=== PATIENT | female | born 1955 | race Caucasian/White ===

== ENCOUNTER → 2018-04-06 | Outpatient (CLI) | payer MEDICARE, MEDICAID ==
[2018-03-23 08:57] LABS: ABSOLUTE NEUTROPHILS 6.9 thou/uL (1.6-8.1); RDW-CV 13.3 % (10.5-14.5)
[2018-03-23 08:59] LABS: ABSOLUTE BASOPHILS 0.2 thou/uL (0.0-0.2); ABSOLUTE EOSINOPHILS 0.2 thou/uL (0.0-0.7); ABSOLUTE LYMPHOCYTES 3.3 thou/uL (0.8-5.3); ABSOLUTE MONOCYTES 0.5 thou/uL (0.0-1.2); BASOPHILS 1.4 %; EOSINOPHILS 1.8 %; HEMATOCRIT 43.1 % (37.0-47.0); HEMOGLOBIN 14.7 gm/dL (12.0-15.0); LYMPHOCYTES 29.7 %; MCH 32.3 pg (26.0-34.0); MCHC 34.2 g/dL (28.0-37.0); MCV 94.6 fL (80.0-100.0); MONOCYTES 4.7 %; NUCLEATED RBCS 0 /100WBC; PLATELET COUNT* 261 thou/uL (150-400); POLYS 62.4 %; RBC 4.55 mil/uL (4.20-5.00)
[2018-03-23 09:07] LABS: APTT 29.4 Seconds (25.0-31.3); PROTIME 9.4 Seconds (9.20-11.50)
[2018-03-23 09:12] LABS: ALBUMIN 3.4 g/dL (3.4-5.0); CALCIUM 9.6 mg/dL (8.5-10.1); CREATININE 0.8 mg/dL (0.6-1.3); TOTAL BILIRUBIN 0.4 mg/dL (<0.1-1.0); TOTAL PROTEIN 7.6 g/dL (6.4-8.2)
[2018-03-23 09:14] LABS: POTASSIUM 2.4 mmol/L (3.5-5.1)
[2018-03-23 10:06] LABS: ESR (SEDRATE) 43 mm/hr (0-30)
--- NOTE | 2018-03-24 13:25 | EKG ---
[place] [address] ELECTROCARDIOGRAM REPORT Name: MONROE GASTELUM Room: PRE IN [facility].#: [id number] Admission: Attend Phys: Nazia Alonso Discharge: Date of : 53 Report #: [id number] THIS REPORT FOR: //name// [facility] Test Date: 2018-03-23 Test Time: 09:03:17 Pat Name: MONROE GASTELUM Department: Room: Gender: F Operating Room Tech: : 1955 Requested By: Chadwick Galaviz Order Number: [id number] Reading MD: Phoenix Mcdonald Measurements Intervals [place] Rate: 67 P: 38 MA: 187 QRS: 19 QRSD: 99 T: 42 QT: 416 QTc: 439 Interpretive Statements Sinus rhythm Abnormal inferior Q waves No previous ECG available for comparison Electronically Signed On 03-24-2018 13:25:35 CDT by Phoenix Mcdonald [email or web address] <ELECTRONICALLY SIGNED> By: Phoenix Mcdonald MD, [facility] 03/24/18 1325 [id number] Phoenix Mcdonald MD, FACC /EPI
[~2018-04-06] VITALS: Ht 149.9 cm; Wt 81.6 kg
[~2018-04-06] MED LIST: ATENOLOL 50MG T50 M1 PO; CHLORTHALIDONE25 MG PO; ELIQUIS2.5 MG PO; IBUPROFEN 800800 M1 PO; KETOCONAZOLE15 GM TOP; NORCO 5-325 TA1 EACH PO; OXYCODONE HCL 55 MG PO; PEPCID20 MG PO; POTASSIUM20 PO; RESTORIL30 MG PO; ULTRAM 50MG TAB50 MG PO
== END | disposition still patient (30) ==
LOC: M.ORTHSURG 06:16 → M.LAB 06:22 → M.PRE 06:22 → M.TBA 06:22 → M.PRE 07:22 → EDSTATUS 08:29 → M.PRE 09:20 → M.ORTHSURG 13:05
PROVIDERS: Orthopaedic Surgery
DX: Z01.818 Encounter for other preprocedural examination (principal); M17.11 Unilateral primary osteoarthritis, right knee

== ENCOUNTER 2018-04-27 06:21 | Inpatient (IN) | payer MEDICARE, MEDICAID ==
[~2018-04-27] VITALS: Ht 149.9 cm; Wt 81.6 kg
[~2018-04-27 06:21] MED LIST changes: -ELIQUIS2.5 MG PO; -NORCO 5-325 TA1 EACH PO; -OXYCODONE HCL 55 MG PO
[2018-04-27 06:48] VITALS: BP 99/59
[2018-04-27 12:00] VITALS: BP 110/59
[2018-04-27 18:34] LABS: CALCIUM 8.8 mg/dL (8.5-10.1); CREATININE 0.9 mg/dL (0.6-1.3); MAGNESIUM 1.6 mg/dL (1.8-2.4)
[2018-04-27 18:39] LABS: POTASSIUM 4.5 mmol/L (3.5-5.1)
[2018-04-27 20:00] VITALS: BP 108/44
[2018-04-28 00:35] VITALS: BP 133/60
[2018-04-28 03:46] VITALS: BP 101/41
[2018-04-28 04:41] LABS: HEMATOCRIT 39.7 % (37.0-47.0); HEMOGLOBIN 12.8 gm/dL (12.0-15.0)
[2018-04-28 08:20] VITALS: BP 109/48
[2018-04-28 12:35] VITALS: BP 109/48
[2018-04-28] MEDS ORDERED: ELIQUIS2.5 MG PO (12:40)
[2018-04-28] MEDS ORDERED: OXYCODONE HCL 55 MG PO (12:41)
[2018-04-28] MEDS ORDERED: NORCO 5-325 TA1 EACH PO (12:42)
[2018-04-28 14:43] VITALS: BP 109/48
--- NOTE | 2018-06-21 08:09 | OP ---
[address] [address] OPERATIVE REPORT Name: MONROE GASTELUM Room: [address]#: [id number] Admission: 04/27/18 Attend Phys: Nazia Alonso Discharge: 04/28/18 Date of : 53 Report #: [id number] THIS REPORT FOR: //name// CC: Chadwick Ferraro DICTATED BY: Kiran Oliveira DO DATE OF SERVICE: 04/27/2018 PREOPERATIVE DIAGNOSIS: Right knee degenerative joint disease. POSTOPERATIVE DIAGNOSIS: Right knee degenerative joint disease. PROCEDURE PERFORMED: Right total knee arthroplasty. SURGEON: Chadwick Galaviz DO. HUMAN RESOURCES HR GENERALIST: Kiran Oliveira DO. SECOND CONTINUOUS PROCESS COFFEE ROASTER: Shilo Carlos DO ANESTHESIA: General, local, IV regional. ESTIMATED BLOOD LOSS: 100 mL. SPECIMENS: None. COMPLICATIONS: None. CONDITION OF THE PATIENT: Stable to PACU. ORTHOPEDIC IMPLANTS: 1. MicroPort Evolution PS femur, size 3. 2. MicroPort Evolution keeled tibial base, size 3. 3. MicroPort Evolution PS articular insert, 10 mm. 4. MicroPort all poly patella, 35 mm. 5. Two bags antibiotic Simplex bone cement, tobra full dose. INDICATION FOR PROCEDURE: The patient is a pleasant female who has had ongoing severe right knee pain. She has increasing difficulty getting around, carrying out activities of daily living, decreased quality of life. On x-ray, she has severe osteoarthritis near the joint space, subchondral sclerosis, cyst formation with osteophytes. She has tried conservative measures in the form of steroid injections, weight loss, activity modifications, home exercises, [place] [address] OPERATIVE REPORT Name: MONROE GASTELUM Zeynep Room: [address] IN [facility]#: [id number] Admission: 04/27/18 Attend Phys: Nazia Alonso Discharge: 04/28/18 Date of : 53 Report #: [id number] which have failed to provide any relief. It was recommend she be a candidate for right total knee arthroplasty. All risks, benefits, complications, indications, alternatives were reviewed with the patient, and she wished to proceed. DESCRIPTION OF PROCEDURE: The patient was brought to the operative suite and placed supine on a well-padded table. After having a regional block in the preop holding area, she has been given the benefit of general anesthesia. Right lower extremity was sterilely prepped and draped in standard fashion. Timeout was taken to ensure correct patient, procedure, operative site. Antibiotics have been given in the form of clindamycin 900 mg IV preoperatively, everybody in the room was in agreement. At that time, 10 blade scalpel was used to make a skin incision through skin and subcutaneous tissue. A second knife was used to perform a medial parapatellar arthrotomy. A subperiosteal tibial sleeve was developed. Patella was everted. Hoffa fat pad was excised. A drill was used to find intramedullary canal of the femur, intramedullary distal femoral cutting guide was placed at 5 degrees valgus. A 12 mm resection was made at the distal femur. Once this was done, we used to size our femur to a size 3, 4-in-1 cutting guide was used to make appropriate cuts. Once these cuts were made, we then addressed her tibia. Tibial extramedullary guide was placed in line with the tibial crest medial to the tibial tubercle. This was pinned into place in the appropriate position. A tibial resection was made. approximately 2-3 mm off the low medial side. Once the tibial resection was made, with adequate space in the 10 block, all pins were removed. We sized her tibia to a size 3, trialled femur with a 10 mm spacer, had full range of motion, excellent stability through range of motion, equal with varus valgus stress. We then freehand resurfaced our patella with a saw, sized it to a 32 mm, drilled 3 peg holes, had excellent patellar tracking, removed that patellar button. We then prepared the proximal tibia with a drill and punch. With pulsatile lavage, the bone ends mixed 2 bags of antibiotic impregnated cement in the back table. We then carried out cementing first at the tibia, followed by the femur and the patella. We pulled the final size 10 mm articular insert. This was placed after the knee was thoroughly irrigated and final implants were in. We then clamped the patella. We then removed the clamp, placed the knee in 90 degrees of flexion and closed over. The knee flexed to 90 degrees and did not move, all cement hardened. We used #1 Vicryl in [id number] fashion, followed by irrigation once more and then a 2-0 Vicryl subcutaneously, followed by running 3-0 Stratafix and Exofin glue. Mepilex dressing and ALMA hose were applied. The patient was awoken from anesthesia and brought to PACU in stable condition. <ELECTRONICALLY SIGNED> By: Lester Cole DO 06/21/18 0809 [id number] Galaviz, DO /nt
== END 2018-04-28 14:45 | disposition home health service (06) | DRG 470 ==
LOC: M.TBA 06:21 → M.ORTHSURG 06:21 → M.PRE 12:32 → M.ORTHSURG 04-28 14:45
PROVIDERS: Orthopaedic Surgery; ADMIT Internal Medicine
PROC: 0SRC0J9 Replacement of Right Knee Joint with Synthetic Substitute, Cemented, Open Approach (ICD-10-PCS; principal; 2018-04-27)
DX: M17.11 Unilateral primary osteoarthritis, right knee (principal); Z96.652 Presence of left artificial knee joint; I10 Essential (primary) hypertension; F17.210 Nicotine dependence, cigarettes, uncomplicated; Z88.0 Allergy status to penicillin; Z88.2 Allergy status to sulfonamides; Z88.5 Allergy status to narcotic agent; Z88.8 Allergy status to other drugs, medicaments and biological substances; Z90.49 Acquired absence of other specified parts of digestive tract; Z98.51 Tubal ligation status